=== PATIENT | female | born 1975 | race Hispanic/Latino ===

== ENCOUNTER 2018-03-18 08:40 | Outpatient (CLI) | payer MEDICAID ==
--- NOTE | 2018-03-18 10:53 | MMO ---
BILATERAL DIGITAL SCREENING MAMMOGRAMS: Date: 03/18/18 HISTORY: 42-year-old female presents for digital screening mammogram. COMPARISON: 01/16/17. FINDINGS: This patient's mammogram was interpreted with the assistance of computer-aided detection. Stable parenchymal density asymmetry in the upper left breast. Scattered areas of fibroglandular dens ity are noted bilaterally. No direct or indirect evidence of malignancy. IMPRESSION: BIRADS 2: Benign Finding(s) Continue routine screening. POS: ESTIVEN
== END 2018-03-18 08:41 | disposition home or self-care (01) ==
LOC: SCSMAMMO 08:40
PROVIDERS: ATTEND Advanced Practice Midwife
DX: Z12.31 Encounter for screening mammogram for malignant neoplasm of breast (principal)
CPT/HCPCS: 77067

== ENCOUNTER 2019-12-03 19:39 | Emergency (ER) | payer MEDICAID, SELFPAY ==
[2019-12-03] MEDS ORDERED: Ondansetron PF 4 MG/2 ML Vial ONE (19:59)
[2019-12-03] MEDS ORDERED: Diazepam 10 MG/2 ML SYRINGE ONE ×2 (20:00→23:04)
--- NOTE | 2019-12-03 20:33 | CT ---
CT BRAIN NONCONTRAST: DATE: 12/03/2019 HISTORY: 44-year-old female with intermittent dizziness, nausea, and vomiting. FINDINGS: There is no evidence of acute intra-axial or extra-axial hemorrhage. There is no midline shift or any other mass effect. There is no extra-axial fluid collection. There is no evidence of obstructive hydrocephalus. Calvarium is intact. There is diffuse brain parenchymal volume loss, greater than exp ected for this age. There is an approximately 6 x 8 mm focal calcification in the right temporal lobe. IMPRESSION: 1. No acute intracranial findings. 2. Nonspecific focal calcified lesion in right parietal lobe. Etiology uncertain. In order to rule ou t neoplasm, MRI of the brain with and without contrast is recommended, on a nonemergent basis.
[2019-12-03 21:25] LABS: Bilirubin Negative (Negative); Blood, Urine Moderate (Negative); Glucose, Urine (Dipstick) Negative (Negative); Ketone, Urine Trace mg/dL (Negative); Leukocyte Negative (Negative); Nitrite Negative (Negative); Protein, Urine (Dipstick) Trace mg/dL (Neg-Trace); Urobilinogen 0.2 mg/dL (Less than 2)
[2019-12-03 21:31] LABS: Clarity Turbid (Clear)
[2019-12-03 21:33] LABS: Bacteria/HPF None Seen HPF (None Seen); Squamous Epithelial 0-3 HPF (0-3); WBC/HPF None Seen HPF (0-3)
[2019-12-03 21:34] LABS: Pregnancy Test - Urine (BHCG) Negative (Negative); Pregu Control Background? CLEAR/WHITE (CLR/WHITE); Pregu Control Bar Appear? YES (CONTROL BAR)
[2019-12-03] MEDS ORDERED: Promethazine HCl 25 MG/ML VIAL ONE (21:52)
== END 2019-12-03 23:20 | disposition home or self-care (01) ==
LOC: ERS 19:39
DX: H81.13 Benign paroxysmal vertigo, bilateral (principal)
CPT/HCPCS: 70450; 81003; 81015; 81025; 96361; 96365; 96375; 96376; J2405; J2550; J3360

== ENCOUNTER 2020-11-23 15:15 | Outpatient (CLI) | payer MEDICAID | END 2020-11-23 15:16 | disposition home or self-care (01) | LOC: EDSTATUS 15:15 → BICMAMMO 15:15 | PROVIDERS: ATTEND Nurse Practitioner Women's Health | DX: Z12.31 Encounter for screening mammogram for malignant neoplasm of breast (principal) | CPT/HCPCS: 77067 ==

== ENCOUNTER 2022-01-29 11:26 | Outpatient (CLI) | payer MEDICAID | END 2022-01-29 11:27 | disposition home or self-care (01) | LOC: BICMAMMO 11:26 | PROVIDERS: ATTEND Nurse Practitioner Women's Health | DX: Z12.31 Encounter for screening mammogram for malignant neoplasm of breast (principal) | CPT/HCPCS: 77067 ==